=== PATIENT | male | born 1995 | race Caucasian/White ===

== ENCOUNTER 2017-09-27 15:37 | Emergency (ER) | payer OTHER ==
[2017-09-27 16:07] VITALS: BP 138/74
--- NOTE | 2017-09-27 16:12 | UC ---
Laceration HPI - History Of Current Complaint Chief Complaint: UCLaceration Stated Complaint: HEAD LACERATION Time Seen by Provider: 09/27/17 16:11 Pain Intensity: 3 - Allergies/Home Medications Allergies/Adverse Reactions: Allergies Allergy/AdvReac Type Severity Reaction Status Date / Time NSAIDS (Non-Steroidal Allergy Swelling Verified 09/27/17 16:09 Anti-Inflamma Of Face,Lips,& Throat Home Medications: Home Medications NK [No Home Medications Reported] 09/27/17 [History Confirmed 09/27/17] PMH/Surg Hx/FS Hx/Imm Hx - Surgical History Surgical History: None - Social History Alcohol Use: Occasionally Substance Use Type: None Smoking Status (MU): Current Some Day Smoker Type: Cigars - Immunization History Most Recent Tetanus Shot: 2015 Physical Exam Vital Signs: Initial Vital Signs Temp 98.2 F 09/27/17 16:05 Pulse 50 09/27/17 16:05 Resp 12 09/27/17 16:05 BP 138/74 09/27/17 16:05 Pulse Ox 100 09/27/17 16:05 Discharge - Discharge Plan Referrals: [facility] - Devin ALARCON [Primary Care Provider] -
[2017-09-27] MEDS ORDERED: Lidocaine 2% PF * 5 ML VIAL INJ ONE (16:25)
--- NOTE | 2017-09-27 16:26 | UC ---
Laceration HPI - HPI Summary HPI Summary: Pt presents with laceration to right forehead. He tells me that about 1 hour [employer]IED [employer] he was at the gym and a 2x2in magnet fell and hit him in the head. No LOC. Sustained laceration to the right forehead. Applied pressure and came to . His last tetanus was last year. - History Of Current Complaint Chief Complaint: UCLaceration Stated Complaint: HEAD LACERATION Time Seen by Provider: 09/27/17 16:11 Hx Obtained From: Patient Laceration Location: Head Onset/Duration: Sudden Onset Severity: Mild Pain Intensity: 3 Pain Scale Used: 0-10 Numeric - Allergies/Home Medications Allergies/Adverse Reactions: Allergies Allergy/AdvReac Type Severity Reaction Status Date / Time NSAIDS (Non-Steroidal Allergy Swelling Verified 09/27/17 16:09 Anti-Inflamma Of Face,Lips,& Throat Home Medications: Home Medications NK [No Home Medications Reported] 09/27/17 [History Confirmed 09/27/17] PMH/Surg Hx/FS Hx/Imm Hx Previously Healthy: Yes - Surgical History Surgical History: None - Social History Alcohol Use: Occasionally Substance Use Type: None Smoking Status (MU): Current Some Day Smoker Type: Cigars - Immunization History Most Recent Tetanus Shot: 2016 Review of Systems Constitutional: Negative Skin: Other - Laceration right forehead Eyes: Negative Respiratory: Negative Cardiovascular: Negative Neurological: Negative Psychological: Negative All Other Systems Reviewed And Are Negative: Yes Physical Exam Triage Information Reviewed: Yes Appearance: Well-Appearing, No Pain Distress, Well-Nourished Vital Signs: Initial Vital Signs Temp 98.2 F 09/27/17 16:05 Pulse 50 09/27/17 16:05 Resp 12 09/27/17 16:05 BP 138/74 09/27/17 16:05 Pulse Ox 100 09/27/17 16:05 Vital Signs Reviewed: Yes Eyes: Positive: Other: - EOMI. PERRLA Neck: Positive: Supple, Nontender Respiratory: Positive: Lungs clear, Normal breath sounds, No respiratory distress Cardiovascular: Positive: RRR, No Murmur, Pulses Normal Musculoskeletal: Positive: Strength Intact - B/L UEs and LEs, ROM Intact - B/L UEs and LEs Neurological: Positive: Alert, Other: - AAOx3. CN II-XII grossly intact Psychological: Positive: Age Appropriate Behavior Skin: Positive: Other - 1.5cm linear laceration to right forehead. Mild edema surrounding the laceration. Bleeding stopped with direct pressure. No FB Laceration Repair - Laceration Repair 1 Description: Linear Laceration Size After Repair: Length (cm) - 1.5 Modified For Repair: No Type Injection: Local Anesthesia Used: 2.0% Lido Cleansing Completed Via Routine Prep: Yes Closure Material: Sutures - FOUR 6-0 Closure Method: Single Layer Suture Of: Skin Suture Type: Nylon - 6-0 Laceration Course/Dx - Course/Dx Course Of Treatment: A time out was performed, witnessed, and signed. The area was cleansed with NS. 2mL of 2% lidocaine without epi was administered and good anesthetization was achieved. In the usual sterile fashion, FOUR 6-0 nylon sutures were placed. The wound was bandaged with telfa and tegaderm. Pt tolerated procedure well. - Differential Dx - Laceration/Wound Provider Diagnoses: 1.5cm laceration to forehead Discharge - Discharge Plan Condition: Stable Disposition: HOME Patient Education Materials: Care For Your Stitches (ED), Laceration (DC) Referrals: [facility] - Devin ALARCON [Primary Care Provider] - Additional Instructions: If you develop a fever, shortness of breath, chest pain, new or worsening symptoms - please call your PCP or go to the ED. 1) Please keep the area bandaged, clean, dry, and intact for the next 24 hours. 2) If you develop a fever, colored or thick discharge, increased pain or swelling - please call your PCP or go to the ED. 3) Please return in 5 days to have your FOUR sutures removed.
== END 2017-09-27 17:12 | disposition home or self-care (01) ==
LOC: UCEAST 15:37
DX: F17.210 Nicotine dependence, cigarettes, uncomplicated (principal); S01.81XA Laceration without foreign body of other part of head, initial encounter; W20.8XXA Other cause of strike by thrown, projected or falling object, initial encounter; Y93.79 Activity, other specified sports and athletics; Y92.838 Other recreation area as the place of occurrence of the external cause
CPT/HCPCS: 12011; 99201; G0463